=== PATIENT | male | born 1935 | race Caucasian/White ===

== ENCOUNTER 2017-07-27 11:22 | Emergency (ER) | payer MEDICARE ==
[2017-07-27] MEDS ORDERED: LIDOCAINE HCL 1% 20 ML VIAL ONE (11:37)
== END 2017-07-27 12:10 | disposition home or self-care (01) ==
LOC: EDH 11:22
DX: S61.412A Laceration without foreign body of left hand, initial encounter (principal); I25.10 Atherosclerotic heart disease of native coronary artery without angina pectoris; I10 Essential (primary) hypertension; E78.00 Pure hypercholesterolemia, unspecified; Z95.1 Presence of aortocoronary bypass graft; Z98.890 Other specified postprocedural states; W18.39XA Other fall on same level, initial encounter; Y93.89 Activity, other specified; Y92.098 Other place in other non-institutional residence as the place of occurrence of the external cause; Y99.8 Other external cause status
CPT/HCPCS: 12002

== ENCOUNTER 2017-08-12 08:40 | Emergency (ER) | payer MEDICARE ==
[2017-08-12 09:44] LABS: APPEARANCE,URINE CLEAR (CLEAR); BILIRUBIN,URINE NEGATIVE (NEGATIVE); COLOR,URINE YELLOW (YELLOW); GLUCOSE, URINE (UA) NEGATIVE (NEGATIVE); KETONES,URINE NEGATIVE (NEGATIVE); LEUKOCYTE ESTERASE ,URINE NEGATIVE (NEGATIVE); NITRATE,URINE NEGATIVE (NEGATIVE); OCCULT BLOOD,URINE SMALL (NEGATIVE); PROTEIN,URINE NEGATIVE (NEGATIVE); UROBILINOGEN,URINE 0.2 mg/dL (0.2-1.0)
[2017-08-12 09:50] LABS: BASOPHILS % (AUTO) 1.2 % (0.0-5.0); HEMATOCRIT 42.7 % (42-54); LYMPHOCYTES % (AUTO) 23.6 % (21.0-51.0); MEAN CORPUSCULAR HEMOGLOBIN 32.3 pg (27.0-33.0); MEAN CORPUSCULAR HGB CONC 33.8 g/dL (32.0-36.0); MEAN CORPUSCULAR VOLUME 95.4 fL (79-99); MONOCYTES % (AUTO) 5.5 % (3.0-13.0); NEUTROPHILS % (AUTO) 66.7 % (40.0-77.0); PLATELET COUNT (AUTO) 154 K/uL (130-400); RED BLOOD CELL COUNT(AUTO) 4.48 MIL/uL (4.50-6.20); RED CELL DISTRIBUTION WIDTH 12.8 % (11.0-15.5); WHITE BLOOD COUNT (AUTO) 6.4 K/uL (4.8-10.8)
[2017-08-12 09:55] LABS: CREATININE 1.3 mg/dL (0.5-1.5); POTASSIUM 4.6 mmol/L (3.5-5.1)
[2017-08-12 10:03] LABS: BACTERIA,URINE Rare /HPF (None Seen); SQUAMOUS EPITHELIAL CELL,UR Rare /LPF (0-2); WBC,URINE 0-1 /HPF (0-1)
[2017-08-12 10:08] LABS: ALBUMIN 3.6 g/dL (3.5-5.0); CREATINE KINASE MB 0.6 ng/mL (0.5-3.6); TOTAL PROTEIN, SERUM 7.1 g/dL (6.0-8.3)
[2017-08-12 10:14] LABS: B-TYPE NATRIURETIC PEPTIDE 69 pg/mL (0-100)
[2017-08-12] MEDS ORDERED: BENZONATATE 100 MG CAPSULE PO ONE (11:17)
[2017-08-12] MEDS ORDERED: AZITHROMYCIN 250 MG TABLET PO ONE (11:17)
== END 2017-08-12 11:56 | disposition home or self-care (01) ==
LOC: EDH 08:40
DX: J18.9 Pneumonia, unspecified organism (principal); R06.2 Wheezing; I25.10 Atherosclerotic heart disease of native coronary artery without angina pectoris; I10 Essential (primary) hypertension; E78.00 Pure hypercholesterolemia, unspecified; Z95.1 Presence of aortocoronary bypass graft; Z98.890 Other specified postprocedural states
CPT/HCPCS: 36415; 71046; 80053; 81001; 82550; 82553; 83880; 84484; 85025; 87804; 93005

== ENCOUNTER 2017-10-21 16:06 | Emergency (ER) | payer MEDICARE ==
[2017-10-21 17:31] LABS: BASOPHILS % (AUTO) 1.3 % (0.0-5.0); EOSINOPHILS % (AUTO) 2.9 % (0.0-8.0); LYMPHOCYTES % (AUTO) 25.1 % (21.0-51.0); MEAN CORPUSCULAR HEMOGLOBIN 32.3 pg (27.0-33.0); MEAN CORPUSCULAR HGB CONC 34.3 g/dL (32.0-36.0); MEAN CORPUSCULAR VOLUME 93.9 fL (79-99); MONOCYTES % (AUTO) 5.1 % (3.0-13.0); NEUTROPHILS % (AUTO) 65.6 % (40.0-77.0); PLATELET COUNT (AUTO) 171 K/uL (130-400); RED BLOOD CELL COUNT(AUTO) 4.47 MIL/uL (4.50-6.20); RED CELL DISTRIBUTION WIDTH 13.9 % (11.0-15.5); WHITE BLOOD COUNT (AUTO) 6.9 K/uL (4.8-10.8)
[2017-10-21 17:41] LABS: CREATININE 1.4 mg/dL (0.5-1.5); POTASSIUM 4.8 mmol/L (3.5-5.1)
[2017-10-21] MEDS ORDERED: KETOROLAC TROMETHAMINE 30MG/ML ONE (18:37)
[2017-10-21] MEDS ORDERED: DEXAMETHASONE SOD PHOSPHATE 10MG/ML 1ML VIAL ONE (18:37)
== END 2017-10-21 20:15 | disposition home or self-care (01) ==
LOC: EDH 16:06
DX: M25.551 Pain in right hip (principal); I10 Essential (primary) hypertension; I25.810 Atherosclerosis of coronary artery bypass graft(s) without angina pectoris; E78.00 Pure hypercholesterolemia, unspecified; Z95.1 Presence of aortocoronary bypass graft; Z98.890 Other specified postprocedural states
CPT/HCPCS: 36415; 73502; 80048; 85025; 96372 ×2; 99285; J1100; J1885